=== PATIENT | male | born 1995 | race African-American/Black ===

== ENCOUNTER 2018-06-09 09:14 | Emergency (ER) | payer OTHER ==
[~2018-06-09] VITALS: Ht 167.6 cm; Wt 62.1 kg
[2018-06-09 10:53] VITALS: BP 103/45; TEMP 97.9
== END 2018-06-09 11:05 | disposition home or self-care (01) ==
LOC: ED 09:14
DX: S16.1XXA Strain of muscle, fascia and tendon at neck level, initial encounter (principal); S29.012A Strain of muscle and tendon of back wall of thorax, initial encounter; X50.0XXA Overexertion from strenuous movement or load, initial encounter; Y92.69 Other specified industrial and construction area as the place of occurrence of the external cause
CPT/HCPCS: 96372; 99283; J1885